=== PATIENT | female | born 1960 | race Caucasian/White ===

== ENCOUNTER → 2016-06-15 | Outpatient (CLI) | payer OTHER ==
[~2016-06-15] MED LIST: BACITRACIN30 GM TOP; IBUPROFEN PO; NO MEDICATIONS; TYLENOL #3 PO; TYLOX 5/500 CAP1 CAP PO; ZITHROMAX PO
--- NOTE | ~2016-06-15 | CR282 ---
[facility]. [facility] A Service of [facility] & [facility] RADIOLOGY TEXT RESULTS PATIENT: LAWRENCE CORDERO LOCATION: [facility] : 60 UNIT #: [id number] AGE: [address]: BARBARA NEVAREZ APRN SEX: F ORDER DR: [id number] [address] [id number] [id number] O MR#: [id number] #: [id number] NAME: LAWRENCE CORDERO : 1960 SEX: F STUDY DATE/TIME: 06/15/2016 17:27 UNIT: [facility] ROOM: STUDY DESCRIPTION: CR Wrist Min 3 View Rt Attending Physician: Barbara Nevarez Aprn Referring Physician: Barbara Nevarez Aprn Ordering Physician: Barbara Nevarez Aprn Primary Care Physician: Eugenio Mckeon M.D. MEDICAL IMAGING REPORT This report is preliminary unless electronic signature is present. EXAM Right wrist 06/15/2016 INDICATIONS 55-year-old female with wrist pain for 2 months. Numbness along the radius and thumb but no known injury. Pain in the right wrist area. TECHNIQUE 3 views compared with 10/27/2006. FINDINGS No acute fracture. No retained opaque foreign body. Alignment preserved. IMPRESSION 1. Negative. Dictated by... Juvencio Estrada M.D. THIS IS AN ELECTRONICALLY VERIFIED REPORT Juvencio Estrada M.D. at 06/17/2016 11:08 AM BRENDA/ryne TD: 06/16/2016 20:03 JOB #: [id number] MEDICAL IMAGING REPORT Page 1 of 1
== END | disposition home or self-care (01) ==
LOC: SRAD 17:22
DX: M25.531 Pain in right wrist (principal)
CPT/HCPCS: 73110